=== PATIENT | female | born 1955 | race Caucasian/White ===

== ENCOUNTER → 2020-08-11 10:02 | Outpatient (CLI) | payer MEDICARE, SELFPAY ==
--- NOTE | ~2020-08-11 | US_ITS ---
EXAMINATION: US right upper quadrant DATE: 08/11/2020 10:51 INDICATION: Abdominal pain. Cholelithiasis. TECHNIQUE: Multiple grayscale and Doppler ultrasound images of the abdomen were obtained. COMPARISON: None FINDINGS: The visualized portions of the head and body of the pancreas are normal. Abdominal aorta is normal in caliber. There is a 3.7 cm cyst in the liver. The gallbladder is normal in size and contai ns a gallstone and sludge. No gallbladder wall thickening or sonographic Michaels sign. The common duct is normal and measures 4 mm. Right kidney is normal in size. IMPRESSION: 1. Cholelithiasis. No evidence of acute cholecystitis. Reviewed, dictated and finalized at location B. [employer]
== END ==
PROVIDERS: PCP Internal Medicine; Visit Provider Physician Assistant Medical
DX: K80.20 Calculus of gallbladder without cholecystitis without obstruction (principal)
CPT/HCPCS: 76705

== ENCOUNTER 2023-10-11 12:49 | Outpatient (CLI) | payer MEDICARE, SELFPAY ==
--- NOTE | ~2023-10-11 | CT_ITS ---
EXAMINATION: CT abdomen pelvis wo con DATE: 10/11/2023 13:15 INDICATION: Right lower quadrant abdominal pain TECHNIQUE: Computed tomography (CT) of the abdomen and pelvis was performed without intravenous contr ast. Automated exposure control and iterative reconstruction technique were employed. The dose-length product was 735.24 mGy-cm. COMPARISON: None FINDINGS: Mild atelectasis at the left lung base along side the margins of a fat-containing Bochdalek hernia at the posterior medial left lung base. Heart size is normal. No pericardial or pleural effusion. 2 cm cyst in the left hepatic lobe. 1 cm peripherally calcified gallstone in the dependent aspect of the n ormal-appearing gallbladder with no pericholecystic stranding to suggest acute cholecystitis. No intr a or extrahepatic biliary ductal dilation. Spleen, pancreas and bilateral adrenal glands are normal. There are bilateral parapelvic cysts at the kidneys the largest measuring 1.8 cm right renal hilum. 5 mm nonobstructing stone at a lower pole calyx of the left kidney. Normal appendix. No bowel obstruct ion. There is extensive scattered diverticulosis throughout the colon. There is wall thickening and i nflammatory stranding surrounding the mid sigmoid colon consistent with diverticulitis. Bladder, ante verted uterus and bilateral adnexa are unremarkable. Trace amount of free fluid in the pelvis. No abs cess or free intraperitoneal gas. No pathologically enlarged abdominal or pelvic lymphadenopathy. Mil d lumbar and moderate lower thoracic spondylosis. IMPRESSION: 1. Radiographically uncomplicated sigmoid diverticulitis. 2. Cholelithiasis. 3. 5 mm nonobstructing left renal stone. Reviewed, dictated and finalized at location A.
== END 2023-10-11 12:50 | disposition home or self-care (01) ==
PROVIDERS: PCP Physician Assistant Medical; Visit Provider Nurse Practitioner Family
DX: R11.10 Vomiting, unspecified (principal); K92.1 Melena; R19.7 Diarrhea, unspecified; R10.32 Left lower quadrant pain; R10.31 Right lower quadrant pain; K80.20 Calculus of gallbladder without cholecystitis without obstruction; N20.0 Calculus of kidney
CPT/HCPCS: 74176

== ENCOUNTER 2023-11-02 08:43 | Day surgery (SDC) | payer MEDICARE, SELFPAY ==
[2023-10-13 11:38] VITALS: BMI 33.2
[2023-10-18 12:04] VITALS: BMI 32.5
--- NOTE | 2023-11-02 07:40 | WPDANESEPPF ---
Anes - Initial Pre Proc Eval Procedure: Operation Date: 11/02/23 11:00 Proposed Procedures p Screening Colonoscopy - Yoni Tavarez MD Date/Time: 11/02/23 07:40 Surgeon: Yoni Tavarez MD Pre Op Diagnosis: Screening for neoplasm of colon. Patient Data Age: 68 Gender: F Height: 1.55 m Weight: 78 kg Allergies Allergy/AdvReac Type Severity Reaction Status Date / Time amoxicillin [From Augmentin] AdvReac Intermediate Gastrointestinal Verified 11/02/23 09:54 Upset clavulanic acid AdvReac Intermediate Gastrointestinal Verified 11/02/23 09:54 [From Augmentin] Upset Home Medications Medication Instructions Recorded Confirmed Type calcium 600 mg-D3 800 unit-mag11 1 tablet PO DAILY 04/14/22 11/02/23 History 50 uc-rsnb-bfjbqm-tobi-s.borat tablet (Caltrate 600-D Plus Minerals) xpjpkbwq-ovuswvg-objb-lutein tablet 1 tablet PO DAILY 04/14/22 11/02/23 History mv-min-vit C-ascorb 1 tablet PO DAILY 04/14/22 11/02/23 History Va-Dok-Evh-herb #124 333 mg-1.7 mg chewable tablet (Airborne (ascorbate sodium)) cholestyramine (with sugar) 4 gram See Rx Instructions .Route 05/30/23 11/02/23 Rx oral powder .COMPLEX #378 grams celecoxib 200 mg capsule See Rx Instructions .Route 08/11/23 11/02/23 Rx .COMPLEX #90 caps Patient hx anesthesia problems: none Family hx anesthesia problems: none Results Review: All pre-operative results and documents have been reviewed as part of the pre-operative evaluation. [facility] Past Medical History Medical History (Updated 11/02/23 @ 10:27 by Yoni Taavrez MD) Arthritis Chronic diarrhea Gall stones Ganglion cyst of finger of right hand IBS (irritable bowel syndrome) Nephrolithiasis Osteoarthritis Right carpal tunnel syndrome UTI (urinary tract infection) Surgical History Surgical History (Updated 11/02/23 @ 07:41 by Clyde Amin DO) History of cholecystectomy History of tubal ligation (1980) Family History Family History Father Diabetes mellitus Hypertension Heart disease Sibling Heart disease Diabetes mellitus Social History Social History Smoking status: Never smoker Alcohol intake: unknown Alcohol use details: rarely Substance use: never Substance use type: does not use Living arrangements: with family Occupation/Education: retired Gender identity (if verbalized by the patient): Female Spiritual care concerns: No Agree to blood products: Yes Anes - Eval Final PreProcedure Day of Procedure 11/02/23 07:40 Patient weight: obese Heart: regular rate and rhythm Lungs: clear to auscultation Airway: Mallampati scale class II Neurological: alert and oriented Last oral intake: >/= 8 hours ASA classification: II Emergent: no Anesthetic plan: proceed Anesthesia type and monitoring: general GIVS and standard monitoring Results Review: All pre-operative results and documents have been reviewed as part of the pre-operative evaluation. Informed Consent: The patient's anesthetic plan and its attendant risks and benefits were discussed with the patient/family/POA. Questions were solicited and answers provided to the satisfaction of the patient/family/POA.
[2023-11-02 10:02] VITALS: BP 133/87; PULSE 87; RESP 18; TEMP 36.8; O2SAT 100; BMI 32.1
[2023-11-02] MEDS: LACTATED RINGERS 1,000 ML 150 ML IV CONT (10:12)
--- NOTE | 2023-11-02 10:25 | PM.HPGS ---
History of Present Illness History of Present Illness Consent: Risks, benefits, and alternatives have been discussed and questions answered. Patient agrees to proceed with procedure. Chief complaint: Screening for neoplasm of colon. Narrative: Tati Reyna is a 68 year old female presents for screening colonoscopy. Patient's current weight appetite and bowel movements are normal. She denies abdominal pain. She has had no bleeding. Family history is noncontributory. One month ago had low abdominal pain. CT scan was performed. She was felt to have diverticulitis. She was placed on broad-spectrum antibiotics with resolution of symptoms. Patient presents today for screening colonoscopy. Review of Systems Review of Systems: All systems reviewed & are unremarkable except as noted in HPI and below PMFSH Past Medical History Medical History (Updated 11/02/23 @ 10:27 by Yoni Tavarez MD) Arthritis Chronic diarrhea Gall stones Ganglion cyst of finger of right hand IBS (irritable bowel syndrome) Nephrolithiasis Osteoarthritis Right carpal tunnel syndrome UTI (urinary tract infection) Surgical History Surgical History (Updated 11/02/23 @ 07:41 by Clyde Amin DO) History of cholecystectomy History of tubal ligation (1980) Family History Family History Father Diabetes mellitus Hypertension Heart disease Sibling Heart disease Diabetes mellitus Social History Social History Smoking status: Never smoker Alcohol intake: unknown Alcohol use details: rarely Substance use: never Substance use type: does not use Living arrangements: with family Occupation/Education: retired Gender identity (if verbalized by the patient): Female Spiritual care concerns: No Agree to blood products: Yes Meds Home Medications and Allergies Home Medications Medication Instructions Recorded Confirmed Type calcium 600 mg-D3 800 unit-mag11 1 tablet PO DAILY 04/14/22 11/02/23 History 50 ra-ljrc-ruioid-tobi-s.borat tablet (Caltrate 600-D Plus Minerals) xxazraby-laecmzp-gdum-lutein tablet 1 tablet PO DAILY 04/14/22 11/02/23 History mv-min-vit C-ascorb 1 tablet PO DAILY 04/14/22 11/02/23 History Hb-Uhi-Ems-herb #124 333 mg-1.7 mg chewable tablet (Airborne (ascorbate sodium)) cholestyramine (with sugar) 4 gram See Rx Instructions .Route 05/30/23 11/02/23 Rx oral powder .COMPLEX #378 grams celecoxib 200 mg capsule See Rx Instructions .Route 08/11/23 11/02/23 Rx .COMPLEX #90 caps Allergies Allergy/AdvReac Type Severity Reaction Status Date / Time amoxicillin [From Augmentin] AdvReac Intermediate Gastrointestinal Verified 11/02/23 09:54 Upset clavulanic acid AdvReac Intermediate Gastrointestinal Verified 11/02/23 09:54 [From Augmentin] Upset Vital Signs Vital Signs - 24 hr 11/02/23 10:02 Temperature 98.3 F Pulse Rate 87 Respiratory Rate 18 Blood Pressure 133/87 Pulse Oximetry 100 Oxygen Delivery Room Air Exam Narrative: Physical exam reveals patient to be alert. Vital signs stable. HEENT exam is unremarkable. Patient is anicteric. Lungs are clear to auscultation and percussion. Heart is without murmur or extra sounds. Abdomen bowel sounds are present soft nontender with no organomegaly. Digital external rectal exam normal. Assessment and Plan Assessment and plan (1) Encounter for screening colonoscopy: Code(s): Z12.11 - Encounter for screening for malignant neoplasm of colon Status: Acute Assessment and Plan: Patient presents for screening colonoscopy. She appears to be at average risk for colon polyps. Recommendations may be given after endoscopy. (2) Diverticulitis: Code(s): K57.92 - Diverticulitis of intestine, part unspecified, without perforation or abscess without bleeding
[2023-11-02 10:49] VITALS: BP 110/74; PULSE 84; RESP 16; O2SAT 99
[2023-11-02 10:59] VITALS: BP 108/73; PULSE 89; RESP 16; O2SAT 98
[2023-11-02 11:09] VITALS: BP 110/74; PULSE 81; RESP 16; O2SAT 97
--- NOTE | 2023-11-02 12:29 | WPDANESPN ---
Anes - Prog Note Post-Op Date/Time: 11/02/23 12:29 Cardiovascular status: normal Respiratory status: normal Airway patency: baseline Mental status: baseline Post-Op hydration status: normal Vital Signs: Last Vital Signs Temp 36.8 C 11/02/23 10:02 Pulse 81 11/02/23 11:09 Resp 16 11/02/23 11:09 BP 110/74 11/02/23 11:09 Pulse Ox 97 11/02/23 11:09 O2 Del Method Room Air 11/02/23 11:09 Pain Score (VAS): 0 I/O: Intake & Output 11/01/23 11/02/23 11/02/23 23:59 07:59 15:59 Intake Total 800 Balance 800 Post-procedural complaints: none Patient Feedback: Patient satisfied with anesthetic care. Other Findings: Patient vital signs back to baseline. Patient denies nausea and vomiting. Patient's pain under control. Patient OK for discharge.
== END 2023-11-02 11:15 | disposition home or self-care (01) ==
PROVIDERS: PCP Family Medicine; Visit Provider Internal Medicine Gastroenterology
PROC: 0DJD8ZZ Inspection of Lower Intestinal Tract, Via Natural or Artificial Opening Endoscopic (ICD-10-PCS; CPT 45378; principal; 2023-11-02 11:00)
DX: Z12.11 Encounter for screening for malignant neoplasm of colon (principal); K57.30 Diverticulosis of large intestine without perforation or abscess without bleeding; K64.8 Other hemorrhoids
CPT/HCPCS: 45378

== ENCOUNTER 2023-12-21 08:39 | Outpatient (CLI) | payer MEDICARE, SELFPAY ==
--- NOTE | ~2023-12-21 | CT_ITS ---
CT of the Abdomen and Pelvis: Indication: Abdominal pain, history of diverticulitis Technique: 2.5 mm axial scans were obtained through the abdomen and pelvis following intravenous adm inistration of 100 cc of Omnipaque 350. Dose reduction technique was used on this scan by utilizing a utomated exposure control and iterative reconstruction technique. The dose-length product (DLP) was 7 37.96 mGy-cm. COMPARISON: 10/11/2023 Findings: Scans through the lung bases demonstrate fat-containing left diaphragmatic hernia, similar to prior exam. Probable left hepatic lobe cyst present. 1.4 cm calcified gallstone present. The spleen, pancreas, ga llbladder, adrenals and kidneys are within normal limits. No evidence of aortic aneurysm. No lympha denopathy. No bowel obstruction or bowel wall thickening. There is no evidence to suggest acute appendicitis. Si gmoid diverticulosis noted. Images through the pelvis were performed. Urinary bladder unremarkable. No pelvic mass seen. No ascit es. Impression: Stable moderate sized fat-containing left diaphragmatic hernia. Cholelithiasis. Sigmoid diverticulosis. No definite evidence for acute diverticulitis. Reviewed, dictated and finalized at location . Impression: Stable moderate sized fat-containing left diaphragmatic hernia. Cholelithiasis. Sigmoid diverticulosis. No definite evidence for acute diverticulitis.
[2023-12-21 08:59] LABS: Estimated Glomerular Filt Rate 55
== END 2023-12-21 08:40 | disposition home or self-care (01) ==
PROVIDERS: PCP Family Medicine; Visit Provider Nurse Practitioner Family
DX: K80.20 Calculus of gallbladder without cholecystitis without obstruction (principal); K57.30 Diverticulosis of large intestine without perforation or abscess without bleeding
CPT/HCPCS: 74177; Q9967